=== PATIENT | male | born 1950 | race Caucasian/White ===

== ENCOUNTER → 2018-03-29 | Outpatient (CLI) | payer MEDICARE ==
[~2018-03-29] VITALS: Ht 172.7 cm; Wt 96.3 kg
[~2018-03-29] MED LIST: ALEVE 220MG220 MG PO; ASPIR-LOW81 MG PO; ASPIRIN 32325 MG/TAB PO; ASPIRIN E.C. 8181 MG PO; CLOPIDOGREL PO; COLACE 100100 MG/CAP PO; FLEXERIL 1010 MG/TAB PO; LIPITOR 80MG80 MG PO; MILK OF MA400 MG/51 PO; NITROSTAT0.4 MG/TAB SL; PEPCID 20MG TAB20 MG PO; PLAVIX 75MG TAB75 MG PO; TOPROL XL 50MG50 MG PO; TOPROL XL50 MG PO; ZANTAC 300300 MG PO; ZESTRIL 5MG5 MG PO
[2018-03-29 05:59] VITALS: BP 111/70; PULSE 92
[2018-03-29 07:13] VITALS: BP 112/56; PULSE 108
[2018-03-29 07:14] VITALS: BP 120/53; PULSE 107
[2018-03-29 07:15] VITALS: BP 124/63; PULSE 108
[2018-03-29 07:16] VITALS: BP 110/56; PULSE 108
== END ==
LOC: COL.CARD 05:45
DX: J98.11 Atelectasis (principal); J81.1 Chronic pulmonary edema; I25.10 Atherosclerotic heart disease of native coronary artery without angina pectoris; I36.1 Nonrheumatic tricuspid (valve) insufficiency; I37.1 Nonrheumatic pulmonary valve insufficiency; I25.2 Old myocardial infarction; M54.6 Pain in thoracic spine; G89.29 Other chronic pain
CPT/HCPCS: A9502; J2785

== ENCOUNTER → 2018-04-18 | Outpatient (CLI) | payer MEDICARE | LOC: COL.RAD 08:03 | DX: S32.000G Wedge compression fracture of unspecified lumbar vertebra, subsequent encounter for fracture with delayed healing (principal) | CPT/HCPCS: A9503 ==

== ENCOUNTER 2018-06-13 13:13 | Outpatient (RCR) | payer MEDICARE, OTHER ==
[~2018-06-13] VITALS: Ht 165.1 cm; Wt 78.8 kg
[2018-06-13] VITALS (11 sets, daily range): BP systolic 89–113; BP diastolic 50–77; PULSE 81–95; TEMP 97.6–98.2
[~2018-06-13 13:13] MED LIST changes: +DECADRON 4MG TAB4 MG PO; +RESTORIL 1515 MG/CAP PO; +ROXICODONE 55 MG/TAB PO; +ZOFRAN ODT4 MG PO; +ZYLOPRIM 100MG100 MG PO
[2018-06-13] MEDS ORDERED: RESTORIL 77.5 MG/CAP PO (13:40)
[2018-06-13] MEDS ORDERED: DULCOLAX STOOL100 MG PO (13:40)
[2018-06-13] MEDS ORDERED: MIRALAX PA17 GM/Dose PO (13:41)
[2018-06-13] MEDS ORDERED: ZOVIRAX400 MG PO (13:42)
[2018-06-13] MEDS ORDERED: VELCADE3.5 MG INJ (13:44)
[2018-06-13] MEDS ORDERED: REVLIMID25 MG PO (13:45)
== END 2018-06-13 18:52 | disposition home or self-care (01) ==
LOC: EUO 13:13
DX: C90.00 Multiple myeloma not having achieved remission (principal)
CPT/HCPCS: J1200; J7050; P9016

== ENCOUNTER 2018-08-14 13:15 | Outpatient (RCR) | payer MEDICARE, OTHER ==
[~2018-08-14 13:15] MED LIST changes: +DULCOLAX STOOL100 MG PO; +MIRALAX PA17 GM/Dose PO; +RESTORIL 77.5 MG/CAP PO; +REVLIMID25 MG PO; +VELCADE3.5 MG INJ; +ZOVIRAX400 MG PO
== END 2018-08-15 11:35 | disposition home or self-care (01) ==
LOC: WSPT 13:15
DX: C90.00 Multiple myeloma not having achieved remission (principal)
CPT/HCPCS: G8978-GP; G8979-GP; G8980-GP

== ENCOUNTER 2019-01-29 14:15 | Outpatient (RCR) | payer MEDICARE, OTHER | END 2019-01-30 | disposition home or self-care (01) | LOC: WSPT | DX: R29.898 Other symptoms and signs involving the musculoskeletal system (principal); Z94.84 Stem cells transplant status | CPT/HCPCS: G8978-GP; G8979-GP ==

== ENCOUNTER 2019-02-02 08:00 | Outpatient (RCR) | payer MEDICARE, OTHER ==
[2019-02-22] MEDS ORDERED: [UNRECOGNIZED DRUG - CODE] PO (17:16)
[2019-04-07] MEDS ORDERED: LEVAQUIN 750MG750 M1 PO (11:07)
[2019-04-07] MEDS ORDERED: FLAGYL 250250 MG/TAB PO (11:08)
[2019-04-07] MEDS ORDERED: ROXANOL 20MG20 MG/ML SL (11:50)
[2019-04-07] MEDS ORDERED: FENTANYL 25 MCG TD (11:51)
[2019-04-07] MEDS ORDERED: OXYCONTIN 20MG20 MG PO (11:53)
[2019-04-07] MEDS ORDERED: NEURONTIN600 MG/TAB PO (11:54)
[2019-04-07] MEDS ORDERED: ATIVAN 0.50.5 MG/TAB PO (11:55)
[2019-04-07] MEDS ORDERED: DECADRON 4MG TAB4 MG PO (11:56)
[2019-04-07] MEDS ORDERED: COMPAZINE 110 MG/TAB PO (11:58)
[2019-04-07] MEDS ORDERED: TRANSDERM-0.5 MG/21 TD (12:02)
== END 2019-07-22 ==
LOC: WSPT
DX: R53.1 Weakness (principal)

== ENCOUNTER 2019-02-22 14:00 | Outpatient (RCR) | payer MEDICARE, OTHER ==
[~2019-02-22] VITALS: Ht 165.1 cm; Wt 65.1 kg
[2019-02-22] VITALS (9 sets, daily range): BP systolic 94–118; BP diastolic 53–68; PULSE 75–87; TEMP 97.9–98.5
[2019-02-22] MEDS ORDERED: [UNRECOGNIZED DRUG - CODE] PO (17:16)
== END 2019-02-22 18:46 | disposition home or self-care (01) ==
LOC: EUO 14:00
DX: C90.02 Multiple myeloma in relapse (principal)
CPT/HCPCS: J7050; P9040

== ENCOUNTER 2019-04-05 13:00 | Outpatient (RCR) | payer MEDICARE, OTHER ==
--- NOTE | 2019-04-05 12:43 | NUR ---
Report received from [facility],Blood bank that they are unable to crossmatch units.Additional samples need to be sent to [place] to get blood.Reported to Dr Kwadwo Main Nurse.This nurse called pt and spoke with .pt will come in today for us to get additional tubes of blood.
[~2019-04-05 13:00] MED LIST changes: +[UNRECOGNIZED DRUG - CODE] PO
--- NOTE | 2019-04-05 13:09 | NUR ---
Patient arrived to obtain additional blood samples for blood bank.
--- NOTE | 2019-04-06 10:00 | NUR ---
Pt called and asked about when blood would be here from [place]. Blood bank said possible not until 04/07/19. stated " Avni is going downhill fast." Told to take him to ER
--- NOTE | 2019-04-07 09:00 | NUR ---
Out patient blood orders esnt with powerhouse mechanic.Per report of [employer] supervisor pt is an inpatient at this time.
[2019-04-07] MEDS ORDERED: LEVAQUIN 750MG750 M1 PO (11:07)
[2019-04-07] MEDS ORDERED: FLAGYL 250250 MG/TAB PO (11:08)
[2019-04-07] MEDS ORDERED: ROXANOL 20MG20 MG/ML SL (11:50)
[2019-04-07] MEDS ORDERED: FENTANYL 25 MCG TD (11:51)
[2019-04-07] MEDS ORDERED: OXYCONTIN 20MG20 MG PO (11:53)
[2019-04-07] MEDS ORDERED: NEURONTIN600 MG/TAB PO (11:54)
[2019-04-07] MEDS ORDERED: ATIVAN 0.50.5 MG/TAB PO (11:55)
[2019-04-07] MEDS ORDERED: DECADRON 4MG TAB4 MG PO (11:56)
[2019-04-07] MEDS ORDERED: COMPAZINE 110 MG/TAB PO (11:58)
[2019-04-07] MEDS ORDERED: TRANSDERM-0.5 MG/21 TD (12:02)
== END 2019-04-09 07:55 | disposition short-term general hospital (02) ==
LOC: EUO 13:00 → EDSTATUS 13:00 → EUO 04-09 07:55
DX: C90.02 Multiple myeloma in relapse (principal)

== ENCOUNTER 2019-04-06 13:52 | Inpatient (IN) | payer MEDICARE, OTHER ==
[~2019-04-06] VITALS: Ht 160 cm; Wt 67.7 kg
[2019-04-06 15:12] LABS: MEAN CELL VOLUME 108 fl (80.0-100.0); MEAN CORPUSCULAR HGB CONC 33 g/dl (33.0-37.0); MEAN PLATELET VOLUME 9.4 fl (7.4-10.4); RED BLOOD COUNT 1.79 M/mm3 (4.20-5.60); REDCELL DISTRIBUTION WIDTH-CV 23.6 % (11.5-14.5)
[2019-04-06 15:26] LABS: ALBUMIN 3.3 gm/dL (3.5-5.0); BILIRUBIN,TOTAL 0.7 mg/dL (0.0-1.0); CALCIUM 7.9 mg/dL (8.4-10.2); CREATININE, serum 1.38 (0.66-1.25); TOTAL PROTEIN 5.4 gm/dL (6.4-8.2)
[2019-04-06 15:32] LABS: HEMATOCRIT 19.4 % (42.0-52.0); HEMOGLOBIN 6.3 g/dl (13.5-18.0); MEAN CORPUSCULAR HEMOGLOBIN 35 pg (27.0-31.0); PLATELET COUNT 33 K/mm3 (130-400)
[2019-04-06 15:34] LABS: POTASSIUM 6.3 mmol/L (3.4-5.0)
[2019-04-06 15:41] LABS: ANISOCYTOSIS 3+; LYMPHOCYTE 95 % (20.0-51.0); NEUTROPHILS 4 % (42.0-75.2); PLATELET ESTIMATE DECREASED (NORMAL)
[2019-04-06 15:42] LABS: MICROCYTOSIS 1+; STOMATOCYTE 1+; TEAR DROP CELLS 2+
[2019-04-06 15:43] LABS: HELMET CELLS 1+; OVALOCYTES 1+
--- NOTE | 2019-04-06 18:38 | NUR ---
Pt arrived to room 318 via cart with ED staff. Pt transferred from the cart to the floor bed with the assistance on one. Oriented to room and call light system. Call light within reach.
--- NOTE | 2019-04-06 18:42 | NUR ---
Report given to JOSEFA Amaral.
--- NOTE | 2019-04-06 19:40 | NUR ---
PT arrived on medical unit. no pain. no soa. family in room. pt on 2L. VSS. IV flushes well. fentanyl patch placed on right chest. family reports given med list to Dr Nix- unsure of meds being taken. this nurse spoke with Dr Carballo- "leave med rec, unless fmaily has questions about particular medications call me back". no needs at this time. call light in reach
[2019-04-06 19:41] VITALS: BP 103/50; PULSE 85; TEMP 98.4
[2019-04-06 23:36] VITALS: BP 96/53; PULSE 82; TEMP 98.3
--- NOTE | 2019-04-06 23:36 | NUR ---
PT RESTING IN BED REPORTS MINIMAL PAIN, NO NEED FOR INTERVENTION. HEELS ELEVATED. REPORTS WOUNDS BILATERAL LEGS- SEES A WOULD PEACE OFFICER. LEGS WRAPPED. FAMILY STATES "WOULD PEACE OFFICER REPORTS NOT TO UNCOVER." EDEMA NOTED IN BILATERAL LEGS. PT O2 DECREASED TO 1L. VSS. PT ASSESED TO BSC WITH A X2 ASSIST. FAMILY AT BEDSIDE. EX WHEEZING NOTED X4 LOBES. RADIAL PULSES FELT. BILATERAL PEDAL PULSES UNABLE TO ASSESS D/T DRESSINGS AND EDEMA. NO NEEDS A THIS TIME. CALL LIGHT IN REACH
[2019-04-07 04:18] VITALS: BP 112/46; PULSE 96; TEMP 97.8
--- NOTE | 2019-04-07 05:53 | NUR ---
pt resting in bed, has not reported pain during night. edema in bilateral legs 3+. wounds on bilateral legs wrapped by pts specialist-unable to assess. pt IV flushes well with fluids currently running- no redness, no swelling. pt has mult bruising noted on bilateral upper extremities. pt in 1L via NC. VSS. no needs at this time. call light in reach. at bedside
[2019-04-07 06:41] LABS: PATHOLOGY DIFF REVIEW OK +
--- NOTE | 2019-04-07 06:59 | NUR ---
report given to JOSEFA Rodriguez. pt and family report no needs
--- NOTE | 2019-04-07 07:47 | NUR ---
Pt assessment complete. Pt is laying in bed upon entry, he is A/O x3. His breathing is even and unlabored on 0.5L O2 via NC. Pt denies SOB, lung sounds coarse. Pt denies any pain at this time. No N/V. Pt attempted to have a BM, no success. Pt able to urinate successfully. BLE wrapped and elevated on pillows. Pt has no needs at this time. Call light within reach. Will continue to monitor.
[2019-04-07 08:50] VITALS: BP 104/51; PULSE 86; TEMP 97.6
--- NOTE | 2019-04-07 09:08 | NUR ---
Spoke with patient and his who state they no longer wish to have the blood transfusion. They wish to go home with hospice. BASIL Smith notified.
[2019-04-07] MEDS ORDERED: LEVAQUIN 750MG750 M1 PO (11:07)
[2019-04-07] MEDS ORDERED: FLAGYL 250250 MG/TAB PO (11:08)
[2019-04-07 11:46] VITALS: BP 102/52; PULSE 86; TEMP 98.2
[2019-04-07] MEDS ORDERED: ROXANOL 20MG20 MG/ML SL (11:50)
[2019-04-07] MEDS ORDERED: FENTANYL 25 MCG TD (11:51)
[2019-04-07] MEDS ORDERED: OXYCONTIN 20MG20 MG PO (11:53)
[2019-04-07] MEDS ORDERED: NEURONTIN600 MG/TAB PO (11:54)
[2019-04-07] MEDS ORDERED: ATIVAN 0.50.5 MG/TAB PO (11:55)
[2019-04-07] MEDS ORDERED: DECADRON 4MG TAB4 MG PO (11:56)
[2019-04-07] MEDS ORDERED: COMPAZINE 110 MG/TAB PO (11:58)
[2019-04-07] MEDS ORDERED: TRANSDERM-0.5 MG/21 TD (12:02)
--- NOTE | 2019-04-07 12:27 | NUR ---
MITCH met with the patient and his , Ania to discuss a discharge plan. The patient lives in [place] with Ania. The patient does have a walker. The patient's PCP is Dr. Crandall and receives his medication from [facility]. The patient does have advanced directives in the EMR. The patient will discharges home today, 04/07 [facility]. SW to faxed discharge orders. The family will transport the patient home. There are no additional needs at this time.
--- NOTE | 2019-04-07 14:38 | NUR ---
Pt discharged at this time. All questions answered. Hospice care to take over when patient gets home. IV to [facility] dc'd catheter tip intact. Pt assisted into private vehicle, paperwork sent with family.
== END 2019-04-07 14:48 | disposition hospice, home (50) | DRG 841 ==
LOC: COL.ER 13:52 → MEDICAL 16:11
PROVIDERS: Family Medicine; ADMIT Internal Medicine
DX: C90.10 Plasma cell leukemia not having achieved remission (principal); E46 Unspecified protein-calorie malnutrition; D63.0 Anemia in neoplastic disease; C90.00 Multiple myeloma not having achieved remission; Z51.5 Encounter for palliative care; E87.5 Hyperkalemia; D69.59 Other secondary thrombocytopenia; G89.3 Neoplasm related pain (acute) (chronic); Z68.26 Body mass index [BMI] 26.0-26.9, adult; Z66 Do not resuscitate
CPT/HCPCS: 99223-AI; 99239; J2405; J7030; J8540